=== PATIENT | female | born 1960 | race Caucasian/White ===

== ENCOUNTER → 2016-12-15 | Outpatient (CLI) | payer BC ==
[~2016-12-15] MED LIST: COCO1OIL2 PO; COLLAGEN PO; TUMERIC PO
--- NOTE | 2016-12-16 13:05 | MAMMOGRAPHY REPORT ---
BILATERAL DIGITAL SCREENING MAMMOGRAM TOMOSYNTHESIS WITH CAD: 12/15/2016 CLINICAL HISTORY: Routine screening. TECHNIQUE: Breast tomosynthesis in addition to standard 2D mammography was performed. Current study was also evaluated with a Computer Aided Detection (CAD) system. COMPARISON: Comparison is made to exams dated: 08/06/2011 mammogram, 11/21/2009 mammogram, and 5 mammogram - [facility]. BREAST COMPOSITION: There are scattered areas of fibroglandular density in both breasts. FINDINGS: There is a new 4 mm rounded mass in the lower inner quadrant of the right breast, for whic h additional targeted ultrasound and possible additional mammographic views is recommended. No other suspicious mass, architectural distortion or cluster of microcalcifications is seen bilatera lly. IMPRESSION: ACR BI-RADS CATEGORY 0: INCOMPLETE EVALUATION: NEED ADDITIONAL IMAGING EVALUATION The new 4 mm mass in the lower inner right breast needs additional evaluation. The patient will be called to schedule an appointment. Approximately 10% of breast cancers are not detected with mammography. A negative mammographic report should not delay biopsy if a clinically suggestive mass is present. Diana Kohli M.D. ay/:12/15/2016 16:36:48 Cell Technician: Ranjit MORGAN(Salomon)(M), [facility] letter sent: Addl Imaging 0 BI-RADS Code: ACR BI-RADS Category 0: Incomplete Evaluation: Need Additional Imaging Evaluation
== END | disposition home or self-care (01) ==
LOC: C.MAMM 16:04
PROVIDERS: ATTEND Nurse Practitioner
DX: Z12.31 Encounter for screening mammogram for malignant neoplasm of breast (principal); N63 Unspecified lump in breast

== ENCOUNTER → 2016-12-28 | Outpatient (CLI) | payer BC ==
--- NOTE | 2016-12-28 14:30 | MAMMOGRAPHY REPORT ---
ULTRASOUND OF BOTH BREASTS: 12/28/2016 CLINICAL HISTORY: 56-year-old woman called back from screening mammography for a 4 mm mass in the low er inner quadrant of the right breast. COMPARISON: Comparison is made to exams dated: 12/15/2016 mammogram, 08/06/2011 mammogram, 11/21/2009 ma mmogram, and 03/11/2005 mammogram - [facility]. FINDINGS: Targeted ultrasound was performed of the lower inner quadrant of the right breast. In the 5:00 axis, 4 cm from the nipple, there is a circumscribed parallel anechoic benign simple cyst measu ring 4.1 x 3.0 x 3.6 mm. This correlates well in size, shape and location as the mammographic mass a nd is benign. No further workup is needed at this time. IMPRESSION: ACR BI-RADS CATEGORY 2: BENIGN The 4 mm circumscribed mammographic mass in the right lower inner quadrant correlates with a benign s imple cyst on ultrasound. Return to annual mammogram screening schedule is recommended. The patient has been verbally notified of the results. Diana oKhli M.D. ay/:12/28/2016 08:52:41 Shank Sander: Dr. Diana Kohli, [facility] letter sent: Normal 1/2 BI-RADS Code: ACR BI-RADS Category 2: Benign
== END | disposition home or self-care (01) ==
LOC: C.MAMM 08:15
PROVIDERS: ATTEND Nurse Practitioner
DX: N63 Unspecified lump in breast (principal)

== ENCOUNTER → 2017-02-11 | Outpatient (CLI) | payer BC ==
[2017-02-11 12:57] LABS: HEMATOCRIT 46.5 % (37-47); MEAN CORPUSCULAR HEMOGLOBIN 30.4 pg (25-34); MEAN CORPUSCULAR HGB CONC 32.7 g/dl (32-36); MEAN PLATELET VOLUME 8.9 fL (7.4-10.4); PLATELET COUNT 271 K/uL (130-400); WHITE BLOOD COUNT 4.81 K/uL (4.8-10.8)
[2017-02-11 13:27] LABS: ALT/SGPT 27 U/L (12-78); BLOOD UREA NITROGEN 16 mg/dl (7-18); BUN/CREATININE RATIO 21.9 (10-20); CALCIUM 9.8 mg/dl (8.5-10.1); CARBON DIOXIDE 28 mmol/L (21-32); CHLORIDE 109 mmol/L (98-107); CHOLESTEROL 248 mg/dl (0-200); CREATININE 0.73 mg/dl (0.60-1.20); GLUCOSE 100 mg/dl (70-99); POTASSIUM 4.3 mmol/L (3.5-5.1); SODIUM 142 mmol/L (136-145); TRIGLYCERIDES 118 mg/dl (0-150); VERY LOW DENSITY LIPOPROT CALC 24 mg/dl
[2017-02-11 13:29] LABS: ALKALINE PHOSPHATASE 57 U/L (45-117); AST/SGOT 20 U/L (15-37); CHOLESTEROL/HDL RATIO 3.4; HDL CHOLESTEROL 73 mg/dl; LDL CHOLESTEROL CALCULATED 151 mg/dl
== END | disposition home or self-care (01) ==
LOC: C.LABBFT 08:01
PROVIDERS: ATTEND Nurse Practitioner
DX: Z13.220 Encounter for screening for lipoid disorders (principal); Z13.0 Encounter for screening for diseases of the blood and blood-forming organs and certain disorders involving the immune mechanism

== ENCOUNTER → 2017-02-17 | Outpatient (CLI) | payer BC | END | disposition home or self-care (01) | LOC: C.PAPS 13:18 | PROVIDERS: ATTEND Nurse Practitioner | DX: Z01.419 Encounter for gynecological examination (general) (routine) without abnormal findings (principal) ==

== ENCOUNTER → 2017-11-01 | Outpatient (CLI) | payer OTHER ==
--- NOTE | 2017-11-01 16:55 | DIAGNOSTIC IMAGING REPORT ---
R LOWER EXT JOINT WITHOUT CLINICAL HISTORY: 56 years-old Female presenting with RIGHT KNEE PAIN R/O MENISCUS TEAR, difficulty ambulating, felt a pop on 09/15/2017, severe medial pain. TECHNIQUE: Multisequence, multiplanar MR imaging of the right knee was performed without the use of intravenous contrast. IV contrast: None. COMPARISON: Plain radiographs from 09/28/2017. FINDINGS: Localizer images: Unremarkable. Bone marrow: Multiple T2 hyperintense microlobulated lesion in the metaphysis of the distal femur measuring 16 mm, likely a low-grade chondroid lesion. Extensive bony edema in the medial femoral condyle. A focal ventricular region of T2 hypointensity, heterogeneous T1 hypointensity along the articular surface in the mid weightbearing portion of the medial femoral condyle. This region measures 13 mm transverse x 22 mm AP. There is no subjacent well-defined fluid signal intensity. No other sites of abnormal bone marrow signal intensity. Articular cartilage: Articular cartilage thinning in the anterior to mid weightbearing portion of the medial femoral condyle. Increased signal intensity within the articular cartilage of the lateral patellar facet and to a lesser extent the lateral trochlea. Articular cartilage irregularity of the medial patellar facet and thinning of the medial trochlea. Minimal osteophytosis evident in the medial compartment. Menisci: Complete tear of the root of the medial meniscus (series 8 image 16). Additional focal tear of the body of the medial meniscus which approaches the inferior articular surface (series 8 image 13). Lateral meniscus intact. Cruciate ligaments: Anterior and posterior cruciate ligaments intact. Collateral ligaments: Edema is noted superficial and deep to the medial collateral ligament primarily at its origin. Lateral collateral ligament complex including the biceps femoris tendon, fibular collateral ligament, popliteus tendon, and iliotibial band intact. Quadriceps and patellar tendons: Quadriceps and patellar tendons intact. Medial and lateral patellar retinacula intact. Joint effusion: Moderate knee joint effusion. Small popliteal cyst. Muscle: Normal muscle bulk and muscle signal intensity. Edema noted within the deep interfascial regions of the distal thigh. Superficial soft tissue: Infrapatellar and prepatellar subcutaneous edema. IMPRESSION: 1. Extensive bony contusion with a subchondral fracture of the mid weightbearing portion of the medial femoral condyle. 2. The posterior horn the medial meniscus additional small tear of the body of the medial meniscus. 3. Grade 1 strain of the MCL. 4. Multifocal articular cartilage thinning and irregularity further detailed above consistent with degenerative changes. 5. Moderate knee joint effusion. Electronically signed by: Magdy Amaya M.D. 11/01/2017 4:54 PM Dictated Date/Time: 11/01/2017 4:35 PM
== END | disposition home or self-care (01) ==
LOC: C.MRIBC 15:37
PROVIDERS: ATTEND Orthopaedic Surgery
DX: S80.01XA Contusion of right knee, initial encounter (principal); S83.241A Other tear of medial meniscus, current injury, right knee, initial encounter; X58.XXXA Exposure to other specified factors, initial encounter